=== PATIENT | female | born 1965 | race Caucasian/White ===

== ENCOUNTER 2022-06-11 07:40 | Emergency (ER) | payer OTHER ==
[~2022-06-11] VITALS: Ht 154.9 cm; Wt 70.5 kg
[2022-06-11 08:15] VITALS: BP 149/89
[2022-06-11] MEDS ORDERED: IBUPROFEN 400MG TABLET PO NR (08:15)
[2022-06-11] MEDS ORDERED: IBUPROFEN 800MG TABLET PO ONE (08:15)
[2022-06-11] MEDS ORDERED: IBUP-2028 PO (09:21)
== END 2022-06-11 09:45 | disposition home or self-care (01) ==
LOC: ER 07:40
DX: M25.511 Pain in right shoulder (principal); E11.9 Type 2 diabetes mellitus without complications; F17.200 Nicotine dependence, unspecified, uncomplicated
CPT/HCPCS: 73030; 99283

== ENCOUNTER 2022-10-22 23:21 | Emergency (ER) | payer OTHER ==
[~2022-10-22] VITALS: Ht 167.6 cm; Wt 73.0 kg
[~2022-10-22 23:21] MED LIST: IBUP-2028 PO
[2022-10-22 23:57] VITALS: TEMP 97.8; O2SAT 96
[2022-10-23] MEDS ORDERED: ONDANSETRON HCL 4MG/2ML INJ IV STA (00:19)
[2022-10-23] MEDS ORDERED: ACETAMINOPHEN 325MG TABLET PO ONE (00:30)
[2022-10-23] MEDS ORDERED: SODIUM CHLORIDE 0.9% 500 ML IV ONE (00:30)
[2022-10-23 00:57] LABS: CHLORIDE 98 mEq/L (98-107); INDEX HEMOLYSI 1 (1-3); INDEX ICTERIC 1 (1-4); INDEX LIPEMIC 1 (1-3); POTASSIUM 4.2 mEq/L (3.5-5.1); SODIUM 132 mEq/L (136-145)
[2022-10-23 00:59] LABS: BASOPHILS % 0.3 % (0.0-2.0); EOSINOPHILS % 0.1 % (0.0-5.0); HEMATOCRIT. 42.4 % (36.0-48.0); HEMOGLOBIN. 13.8 g/dL (12.0-16.0); LYMPHOCYTES % 10.8 % (20.0-50.0); MEAN CORPUSCULAR HEMOGLOBIN 27.9 pg (28.0-32.0); MEAN CORPUSCULAR HGB CONC 32.5 g/dL (31.0-37.0); MEAN PLATELET VOLUME 10.8 fl (7.4-10.4); MONOCYTES % 11.6 % (2.0-8.0); NEUTROPHILS % 77.2 % (40.0-76.0); PLATELET 159 x1000/uL (130-400); RED BLOOD CELL COUNT 4.93 mill/uL (4.2-5.4); RED CELL DISTRIBUTION WIDTH 16.2 % (11.6-14.6)
[2022-10-23 01:15] LABS: ASPARTATE AMINOTRANSFERASE 40 IU/L (15-37); BILIRUBIN TOTAL 0.8 mg/dL (0.1-1.0); CALCIUM 9.6 mg/dL (8.5-10.1); CARBON DIOXIDE 22 mEq/L (21-32); CREATININE 0.7 mg/dL (0.6-1.3); PROTEIN TOTAL 7.8 g/dL (6.0-8.3); UREA NITROGEN BLOOD 17 mg/dL (7-21)
[2022-10-23 01:16] LABS: ALANINE AMINOTRANSFERASE 83 IU/L (13-61)
[2022-10-23 01:17] LABS: GLUCOSE 443 mg/dL (70-105)
[2022-10-23 01:37] LABS: CLARITY URINE CLOUDY (CLEAR); COLOR URINE DARK YELLOW (YELLOW); GLUCOSE URINE 3+ (NEGATIVE); KETONES URINE 1+ (NEGATIVE); LEUKOCYTE ESTERASE URINE TRACE (NEGATIVE); NITRITE URINE NEGATIVE (NEGATIVE); OCCULT BLOOD URINE NEGATIVE (NEGATIVE); PROTEIN URINE 2+ (NEGATIVE); SPECIFIC GRAVITY URINE 1.038 (1.005-1.030)
[2022-10-23 02:04] LABS: BACTERIA URINE 1+; HYALINE CASTS URINE 0-5 /lpf; SQUAMOUS EPITHELIAL CELL URINE 1+ /lpf (RARE/1+)
[2022-10-23] MEDS ORDERED: CEPH500C2 MT (02:24)
[2022-10-23] MEDS ORDERED: ACET-2708 MT (02:24)
[2022-10-23] MEDS ORDERED: CEFTRIAXONE 1GM PREMIX 50 ML IV ONE (02:30)
[2022-10-23 02:46] VITALS: BP 138/74; PULSE 95; RESP 18
== END 2022-10-23 03:15 | disposition home or self-care (01) ==
LOC: ER 23:21
DX: E11.65 Type 2 diabetes mellitus with hyperglycemia (principal); R11.2 Nausea with vomiting, unspecified; M79.10 Myalgia, unspecified site; N39.0 Urinary tract infection, site not specified; Z20.822 Contact with and (suspected) exposure to COVID-19
CPT/HCPCS: 81025; 99284; 80053; 81003; 83690; 85025; 87086; 87186; 87077; 36415; 96361; 96365; 96375; 87426; J0696; J2405; J7030; C9803; Z7610